=== PATIENT | male | born 1975 | race African-American/Black ===

== ENCOUNTER 2016-11-20 07:00 | Day surgery (SDC) | payer OTHER ==
[~2016-11-20] VITALS: Ht 182.9 cm; Wt 103.0 kg
[~2016-11-20 07:00] MED LIST: NAPR-855 PO
[2016-11-20] MEDS ORDERED: LR 1,000 ML IV ONE (07:45)
[2016-11-20] MEDS ORDERED: MIDAZOLAM INJ 2 MG/2 ML VIAL (J2250) As Ordered ONE ×2 (07:55→09:10)
[2016-11-20] MEDS ORDERED: PROPOFOL 200 MG/20 ML VIAL As Ordered ONE ×3 (07:56→11:05)
[2016-11-20] MEDS ORDERED: fentaNYL 100 MCG/2 ML INJECTION (J3010) As Ordered ONE (07:56)
[2016-11-20] MEDS ORDERED: LIDOCAINE 2% INJ 100 MG/5 ML SDV (FOR ANES.) As Ordered ONE (07:56)
[2016-11-20] MEDS ORDERED: KETAMINE HCL 200 MG/20 ML VIAL As Ordered ONE (08:32)
[2016-11-20] MEDS ORDERED: LIDOCAINE 2% MDV 20 ML VIAL As Ordered ONE (08:32)
[2016-11-20] MEDS ORDERED: BUPIVACAINE HCL 0.5% 30 ML VIAL As Ordered ONE (08:32)
[2016-11-20] MEDS ORDERED: dexameTHASONE 4 MG/ML 1ML VIAL (J1100) As Ordered ONE (08:32)
[2016-11-20] MEDS ORDERED: NEOSPORIN GU IRRIG 20 ML VIAL As Ordered ONE (08:33)
[2016-11-20] MEDS ORDERED: BACITRACIN PWD 50,000 UNITS VIAL As Ordered ONE (08:33)
[2016-11-20] MEDS ORDERED: ONDANSETRON 4MG/2ML VIAL (J2405) As Ordered ONE (09:36)
[2016-11-20] MEDS ORDERED: KETOROLAC 60 MG/2 ML VIAL (J1885) As Ordered ONE (09:36)
[2016-11-20] MEDS ORDERED: GLYCOPYRROLATE INJ 0.2 MG/ML 2 ML VIAL As Ordered ONE (09:39)
[2016-11-20] MEDS ORDERED: ONDANSETRON 4MG/2ML VIAL (J2405) IV PRN (12:00)
[2016-11-20] MEDS ORDERED: fentaNYL 100 MCG/2 ML INJECTION (J3010) IV PRN (12:00)
[2016-11-20] MEDS ORDERED: LR 1,000 ML IV SCH (12:00)
[2016-11-20] MEDS: PERCOCET 5MG/325MG TAB PO PRN ×2 (12:04→13:27)
[2016-11-20] MEDS ORDERED: PERCOCET 5MG/325MG TAB As Ordered ONE (13:22)
[2016-11-20 13:30] VITALS: BP 145/89
--- NOTE | 2016-11-20 13:56 | REP ---
LEFT FOOT, FOUR VIEWS: HISTORY: Postoperative. The patient is status post osteotomy of the distal 1st and 5th metatarsals. Metal screws are present. The patient is status post osteotomy of the 2nd through 4th digits. Metal pins are present. There is no dislocation. IMPRESSION: The patient is status post osteotomy of the 1st and 5th metatarsals and 2nd through 4th digits. There is anatomic alignment. Signed by Teja Nair MD 11/20/2016 01:58 P
--- NOTE | 2016-11-21 13:34 | RO ---
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 PROCEDURE: CB BUNIONECTOMY WITH INTERNAL SCREW FIXATION LEFT FOOT: PROXIMAL INTERPHALANGEAL JOINT ARTHROPLASTY WITH EXTERNAL WIRE FIXATION 0.045 X 1 SECOND TOE RIGHT FOOT: PROXIMAL INTERPHALANGEAL JOINT ARTHROPLASTY WITH EXTERNAL WIRE FIXATION 0.045 X 1 THIRD TOE LEFT FOOT: PROXIMAL INTERPHALANGEAL JOINT ARTHROPLASTY WITH EXTERNAL WIRE FIXATION 0.045 X 1 FOURTH TOE LEFT FOOT: PROXIMAL INTERPHALANGEAL JOINT ARTHROPLASTY FIFTH TOE LEFT FOOT: TAILOR'S BUNIONECTOMY WITH DISTAL V OSTEOTOMY WITH INTERNAL SCREW FIXATION 2.5 mm x 60 mm x 1 LEFT FOOT: SURGEON: Dr. Chandu Thorpe DPM FLAT LOCK OPERATOR: None. ANESTHESIA: Local MAC. IRRIGATION: Dilute bacitracin, neomycin and polymyxin B solution. HEMOSTASIS: Ankle pneumatic tourniquet at 200 mmHg for 112 minutes. ESTIMATED BLOOD LOSS: 10 mL. HARDWARE UTILIZED: Smith Dart-Fire 3.0 x 24 mm and a 2.5 x 16 mm and an external wire 0.045 times three. DESCRIPTION OF OPERATION: On 11/20/2016, this 41-year-old black male was taken from his hospital room to the operating room and placed on the operating room table in the supine position. Following the induction of IV sedation and local and regional anesthesia, the left lower extremity was prepped and draped in the usual aseptic manner. Sterile draping was completed, ankle pneumatic tourniquet was rapidly inflated over a well padded site over the ankle and attention was directed to the patient's left foot where the following procedure was performed: CB BUNIONECTOMY WITH INTERNAL SCREW FIXATION LEFT FOOT: Attention was directed to the patient's left foot where there was noted to be a moderate hallux valgus deformity. At this time, a 6 cm dorsal medial incision was placed over the first metatarsal phalangeal joint medial to the extensor tendon. The incision was deepened through subcutaneous tissues and all coursing venous tributaries were identified, underscored clamped, cut, ligated and electrocoagulated as necessary. A linear capsulotomy was then performed in the same plane as the original skin incision. The capsule and periosteal structures were then dissected free in one continuous layer dorsally, medially and laterally thus creating a capsular periosteal type envelope. Linear capsulotomy was then performed in the same plane as the original skin incision. The capsule and periosteal structures were dissected free in one continuous layer dorsally, medially and laterally thus creating a capsular periosteal type envelope. Utilizing a power saw, an osteotomy was performed through the medial eminence of the first metatarsal from distal to proximal through and through exiting medial to the sesamoidal groove. This was extirpated from the wound. Dissection was then carried lateral to the extensor tendon and dissection was carried down to the fibular sesamoid where the conjoined tendon was sharply dissected free from the fibular sesamoid. Attention was directed to the medial surface of the first metatarsal where a V-shaped osteotomy was performed with a long plantar and short dorsal wing in the distal metaphysis of the first metatarsal. The capital fragment was transposed approximately 40% of the width of the shaft of the first metatarsal and fixated with a 3.0 x 24 mm cannulated compression screw. The screw did not penetrate the inferior cartilage under direct visualization. The redundant cortical spike was then osteotomized from dorsal to plantar through and through and extirpated from the wound. The medial surface was rasped with a hand held rasp to a smooth contour. The wound was flushed with copious amounts of dilute bacitracin, neomycin and polymyxin B solution. Attention was then directed towards closure where the capsular structures were coapted and maintained utilizing #2-0 Monocryl in a simple interrupted type fashion. Subcutaneous tissues were coapted and maintained utilizing #4-0 Monocryl in a simple interrupted type fashion. Skin incision was coapted and maintained utilizing #5-0 Monocryl in a continuous subcuticular type fashion. Attention was then directed to the patient's second toe where the following procedure was performed: PROXIMAL INTERPHALANGEAL JOINT ARTHROPLASTY WITH EXTERNAL WIRE FIXATION 0.045 X 1 SECOND TOE RIGHT FOOT: Attention was directed to the patient's second toe where an incision was made from the metatarsal phalangeal joint just distal to the proximal interphalangeal joint. The incision was deepened through the subcutaneous tissues and all coursing and venous tributaries were identified, underscored, clamped, cut, ligated and electrocoagulated as necessary. Z-plasty tendon lengthening was then performed at the extensor tendon. Medial and lateral collateral ligaments were then sharply dissected from the head of the proximal phalanx. Utilizing a power saw, an osteotomy was performed through the anatomical neck of the proximal phalanx from dorsal to plantar through and through. This was extirpated from the wound. The cartilage off the base of the middle phalanx was similarly osteotomized from dorsal to proximal through and through. A capsulotomy was then performed at the second metatarsal phalangeal joint capsule and the plantar plate was released. The wound was flushed with copious amounts of dilute bacitracin, neomycin and polymyxin B solution. External wire was then driven through the middle and distal phalanxes and the retrograded into the proximal phalanx. The wire was bent and a protective cap was placed on the distal end of the wire. Attention was then directed to the patient's third toe where the following procedure was performed: PROXIMAL INTERPHALANGEAL JOINT ARTHROPLASTY WITH EXTERNAL WIRE FIXATION 0.045 X 1 THIRD TOE LEFT FOOT: Attention was directed to the patient's third toe of the left foot. The procedure performed on the second toe was now performed on the third toe without variation or deletion, the only exception being that of anatomical location. Attention was then directed to the patient's fourth toe where the following procedure was performed: PROXIMAL INTERPHALANGEAL JOINT ARTHROPLASTY WITH EXTERNAL WIRE FIXATION 0.045 X 1 FOURTH TOE LEFT FOOT: Attention was directed to the patient's fourth toe of the left foot. The procedure performed on the second toe was now performed on the fourth toe without variation or deletion, the only exception being that of anatomical location. Attention was then directed to the patient's fifth toe where the following procedure was performed: PROXIMAL INTERPHALANGEAL JOINT ARTHROPLASTY FIFTH TOE LEFT FOOT: Attention was directed to the patient's fifth toe of the left foot. The procedure performed on the second toe was now performed on the fifth toe with the following variations: The cartilage was not removed from the middle phalanx of the fifth toe and no wire was used to stabilize the fifth toe. Attention was then directed to the lateral surface of the foot where there was noted to be a Tailor's bunion deformity. At this time, the following the procedure was performed: TAILOR'S BUNIONECTOMY WITH DISTAL V OSTEOTOMY WITH INTERNAL SCREW FIXATION 2.5 mm x 60 mm x 1 LEFT FOOT: Attention was directed to the patient's left foot where there was noted to be a Tailor's bunion deformity. At this time, a lateral incision was placed over the fifth metatarsal phalangeal joint. The incision was deepened through subcutaneous tissues and all coursing venous tributaries were identified, underscored, clamped, cut, ligated and electrocoagulated as necessary. A linear capsulotomy was performed in the same plane as the original skin incision. Capsule and periosteal structures were then dissected free dorsally and plantarly. The hypertrophied lateral eminence was osteotomized from distal to proximal, A V shaped osteotomy was then performed in the distal metaphysis of the fifth metatarsal with a long plantar and short dorsal wing. The capital fragment was transposed 40% of the width of the shaft of the fifth metatarsal and fixated with a screw 2.5 x 16 mm. The osteotomy was noted to be stable in all three cardinal planes. The redundant cortical spike was osteotomized from dorsal the plantar through and through and the lateral surface was rasped with smooth contour with a hand held rasp. The wound was again flushed with copious amounts of dilute bacitracin, neomycin and polymyxin B solution. Attention was then directed towards closure where the capsular structures were coapted and maintained using #2-0 Monocryl in simple interrupted type fashion. Subcutaneous tissues were coapted and maintained using #5-0 Monocryl in simple interrupted type fashion. Skin incision were coapted and maintained utilizing #5-0 Monocryl in a continuous subcuticular type fashion. This was additionally reinforced with Steri-Strips. Attention was then directed towards bandaging where a sterile compressive bandage was applied consisting of Adaptic, 4x4s, 4x4 splints, Saul, and 4 inch yanni wrap. The tourniquet was deflated during the procedure at the close of the digits. A pneumatic cam boot was dispensed for the patient to help immobilize the patient' s foot. The patient having apparently tolerated the surgical procedure well was taken from the operating room (OR) to his hospital room with vital signs stable and the patient afebrile for further monitoring by the anesthesia department. All surgical specimens removed during the operative procedure were sent to pathology for gross and microscopic examination. Postoperative instructions will be given upon discharge. KOKI
== END 2016-11-20 13:38 | disposition home or self-care (01) ==
LOC: M SDC 07:00
PROVIDERS: ATTEND Podiatrist
DX: M20.12 Hallux valgus (acquired), left foot (principal); M20.42 Other hammer toe(s) (acquired), left foot; M21.622 Bunionette of left foot
CPT/HCPCS: 28110; 28285; 28296; 36415; 73630; 85660; 88300; 97116; C1776; J0690; J1100; J1885; J2250; J2405; J3010

== ENCOUNTER 2018-02-06 08:12 | Day surgery (SDC) | payer OTHER ==
[~2018-02-06] VITALS: Ht 188 cm; Wt 95.9 kg
[~2018-02-06 08:12] MED LIST changes: +CHLO1TAB26 PO; +EUCE1CRE2 EX; +IBUP200C25 PO
[2018-02-06] MEDS ORDERED: LIDOCAINE 2% MDV 20 ML VIAL As Ordered ONE (08:20)
[2018-02-06] MEDS ORDERED: dexameTHASONE 4 MG/ML 1ML VIAL (J1100) As Ordered ONE ×2 (08:20→09:07)
[2018-02-06] MEDS ORDERED: BACITRACIN PWD 50,000 UNITS VIAL As Ordered ONE (08:20)
[2018-02-06] MEDS ORDERED: BUPIVACAINE HCL 0.5% 30 ML VIAL As Ordered ONE (08:20)
[2018-02-06] MEDS ORDERED: ROPIvacaine 0.5% 30 ML INJECTION (J2795 PER 1MG) As Ordered ONE (08:21)
[2018-02-06] MEDS ORDERED: NEOSPORIN GU IRRIG 20 ML VIAL As Ordered ONE (08:21)
[2018-02-06 08:50] LABS: BASO # 0.1 10^3/uL (0.0-0.2); BASO % 1.1 % (0.0-1.0); EOS # 0.2 10^3/uL (0.0-0.50); EOS % 3.4 % (0.0-3.0); HEMATOCRIT 46.2 % (42.0-52.0); HEMOGLOBIN 15.8 g/dl (13.5-17.5); LYMPH # 1.4 10^3/uL (1.5-4.5); LYMPH % 30.2 % (24.0-44.0); MEAN CORPUSCULAR HEMOGLOBIN 31.8 pg (27.0-33.0); MEAN CORPUSCULAR HGB CONC 34.2 g/dl (32.0-36.5); MONO # 0.5 10^3/uL (0.0-0.8); MONO % 10.8 % (0.0-5.0); NEUTROPHILS # 2.6 10^3/uL (1.8-7.7); NEUTROPHILS % 54.1 % (36.0-66.0); PLATELET COUNT, AUTOMATED 259 10^3/uL (150-450); RED BLOOD COUNT 4.97 10^6/uL (4.30-6.10); WHITE BLOOD COUNT 4.7 10^3/uL (4.0-10.0)
[2018-02-06] MEDS ORDERED: ONDANSETRON 4MG/2ML VIAL (J2405) As Ordered ONE (09:07)
[2018-02-06] MEDS ORDERED: LIDOCAINE 2% INJ 100 MG/5 ML SDV (FOR ANES.) As Ordered ONE (09:07)
[2018-02-06] MEDS ORDERED: PROPOFOL 200 MG/20 ML VIAL As Ordered ONE ×5 (09:08→11:41)
[2018-02-06] MEDS ORDERED: MIDAZOLAM INJ 2 MG/2 ML VIAL (J2250) As Ordered ONE (09:08)
[2018-02-06 09:09] LABS: BLOOD UREA NITROGEN 10 MG/DL (7-18); CARBON DIOXIDE LEVEL 26 MEQ/L (21-32); CHLORIDE LEVEL 105 MEQ/L (98-107); GLOMERULAR FILTRATION RATE > 60.0 (>60); GLUCOSE, FASTING 83 MG/DL (70-100); SODIUM LEVEL 138 MEQ/L (136-145)
[2018-02-06] MEDS ORDERED: fentaNYL 100 MCG/2 ML INJECTION (J3010) As Ordered ONE (09:09)
[2018-02-06] MEDS ORDERED: LR 1,000 ML IV SCH ×2 (09:15→12:15)
[2018-02-06] MEDS ORDERED: KETOROLAC 60 MG/2 ML VIAL (J1885) As Ordered ONE (10:49)
[2018-02-06] MEDS ORDERED: KETAMINE HCL 200 MG/20 ML VIAL As Ordered ONE (12:08)
[2018-02-06] MEDS ORDERED: KETOROLAC 30 MG/ML VIAL (J1885) IV PRN (12:15)
[2018-02-06] MEDS ORDERED: fentaNYL 100 MCG/2 ML INJECTION (J3010) IV PRN (12:15)
[2018-02-06] MEDS ORDERED: ONDANSETRON 4MG/2ML VIAL (J2405) IV PRN (12:15)
[2018-02-06] MEDS ORDERED: METOCLOPRAMIDE INJ 10MG/2ML VIAL (J2765) IV PRN (12:15)
[2018-02-06] MEDS ORDERED: PERCOCET 5MG/325MG TAB PO PRN (12:15)
--- NOTE | 2018-02-06 12:31 | REP ---
Clinical: Postoperative evaluation. Technique: Portable AP, lateral, bilateral oblique views of the right foot. Findings: The patient is status post partial resection and realignment involving the second through fifth phalanges as well as evidence for bunionectomy involving the first metatarsal head. Overlying postsurgical changes noted. Impression: Postoperative changes involving the right foot. Electronically Signed by Chandu Cota MD 02/06/2018 12:23 P
[2018-02-06 12:35] VITALS: BP 136/87
--- NOTE | 2018-02-09 15:05 | RO ---
DATE OF PROCEDURE: 02/06/2018 PREPROCEDURE DIAGNOSIS: Hallux valgus metatarsus primus varus deformity right foot, hammertoe deformity 2nd toe right foot, hammertoe deformity 3rd toe right foot, hammertoe deformity 4th toe right foot, hammertoe deformity 5th toe right foot. POSTPROCEDURE DIAGNOSIS: Hallux valgus metatarsus primus varus deformity right foot, hammertoe deformity 2nd toe right foot, hammertoe deformity 3rd toe right foot, hammertoe deformity 4th toe right foot, hammertoe deformity 5th toe right foot. PROCEDURE: 1. Cb bunionectomy internal screw fixation 3.0 x 22 mm x 1. 2. Proximal interphalangeal joint arthroplasty with external wire fixation 0.045 x 1 right foot. 3. Proximal interphalangeal joint arthroplasty with external wire fixation 0.045 x 1 3rd toe right foot. 4. Proximal interphalangeal joint arthroplasty 4th toe with external wire fixation 0.045 x 1 right foot. 5. Proximal interphalangeal joint arthroplasty 5th toe right foot. 6. Capsulotomy 2nd metatarsophalangeal joint right foot. 7. Capsulotomy 3rd metatarsophalangeal joint right foot. SURGEON: Dr. Chandu Thorpe DPM WIRE ROLLER: None. ANESTHESIA: Local monitored anesthesia care (MAC). HARDWARE UTILIZED: Arthrex 3.0 x 22 mm headless compression screw and 0.045 wire x 3. HEMOSTASIS: Ankle pneumatic tourniquet at 200 mmHg times approximately 87 minutes. DESCRIPTION OF PROCEDURE: On 02/06/2018, this 42-year-old black male was taken from his hospital room to the operating room and placed on the operating table in the supine position. Following the induction of intravenous (IV) sedation and local and regional anesthesia, the right lower extremity was prepped and draped in the usual aseptic manner. Attention was directed to the patient's right foot. There was noted to be hallux valgus deformity. At this time, the following procedure was performed: CB BUNIONECTOMY, INTERNAL SCREW FIXATION 3.0 mm x 22 mm TIMES ONE RIGHT FOOT: Attention was directed to the patient's right foot. There was noted to be a hallux valgus deformity. At this time, a 6 cm incision was placed over the metatarsophalangeal joint of the right foot. The incision was deepened through subcutaneous tissues and all coursing venous tributaries were identified, underscored, clamped, cut, ligated and electrocoagulated as necessary. A linear capsulotomy was performed in the same plane as the original skin incision. The capsular and periosteal structures were then dissected free in one continuous layer - dorsally, medially and laterally, thus creating a capsular periosteal type envelope. Attention was directed to the medial surface of the 1st metatarsal where the hypertrophied medial eminence was osteotomized from distal to proximal exiting medial to the sesamoidal groove. Attention was then directed into the 1st intermetatarsal space where dissection was carried down to the level of the conjoined tendon, which was sharply dissected free from the fibular sesamoid. Attention was directed to the medial surface of the 1st metatarsal where a V-shaped osteotomy was performed with a long plantar and short dorsal wing. Upon creation of this osteotomy, the capital fragment was transposed approximately 40% of the width of the shaft of the 1st metatarsal and fixated with a 3.0 x 22 mm headless compression screw. The osteotomy was noticed to be stable in all three cardinal planes. The redundant cortical spike was osteotomized from dorsal to plantar, through and through and extirpated from the wound in toto. Medial surface was rasped to a smooth contour. The wound was flushed with copious amounts of dilute bacitracin, neomycin and polymyxin B solution. Capsular structures were coapted and maintained utilizing #2-0 Monocryl in a simple interrupted type fashion. Subcutaneous tissues were coapted and maintained utilizing #4-0 Monocryl in a simple interrupted type fashion. Skin incision was coapted and maintained utilizing #4-0 Prolene in a simple interrupted and horizontal mattress type fashion. Attention was then directed to the patient's 2nd toe. The following procedure was performed: PROXIMAL INTERPHALANGEAL JOINT ARTHROPLASTY WITH EXTERNAL WIRE FIXATION 0.045 TIMES ONE 2nd TOE RIGHT FOOT: Attention was directed to the patient's right foot. There was noted to be a significantly contracted hammertoe deformity. At this time, two semi-elliptical incisions were placed over the dorsal aspect of the 2nd toe encompassing a corn. This was then extirpated from the wound. Dissection was carried down to the extensor tendon. All coursing venous tributaries were electrocoagulated as necessary. The extensor expansion and sands was then released and a Z-plasty tendon lengthening was performed of that tendon and this was freed to the level of the metatarsophalangeal joint. Medial and lateral collateral ligaments were sharply dissected free from the head of the proximal phalanx, and utilizing a sagittal saw, an osteotomy was performed at the level of the anatomical neck of the proximal phalanx from dorsal to plantar, through and through and extirpated from the wound. The articular cartilage on the base of the middle phalanx was similarly osteotomized from dorsal to plantar, through and through. The wound was flushed with copious amounts of dilute bacitracin, neomycin and polymyxin B solution. Utilizing an external wire, a 0.045 wire was driven through the middle and distal phalanxes and retrograded into the proximal phalanx utilizing C-arm control. The wire was bent, cut, and a [employer] ball was placed at the end of the external wire. Utilizing a braided nylon #4-0 and looped suture, a four-stranded core repair in a Frost fashion was placed across the extensor tendon. There was noted to be a contracture of the 2nd metatarsophalangeal joint. Therefore, the following procedure was performed: EXTENSOR CAPSULOTOMY 2nd METATARSOPHALANGEAL JOINT RIGHT FOOT: Attention was directed to the patient's metatarsophalangeal joint where an incision was made over the metatarsophalangeal joint. Extensor tendons were retracted in a lateral direction, and a dorsal capsulotomy was performed. This was closed with #4-0 Prolene in a simple interrupted type fashion. Attention was then directed to the patient's 3rd toe of the right foot. The following procedure was performed: PROXIMAL INTERPHALANGEAL JOINT ARTHROPLASTY WITH EXTERNAL WIRE FIXATION 0.045 TIMES ONE 3rd TOE RIGHT FOOT: Attention was directed to the patient's 3rd toe of the right foot where the procedure performed on the 2nd toe was now performed on the 3rd toe without variation or deletion, the only exception being that of anatomical location. Attention was then directed to the patient's 3rd metatarsophalangeal joint where there was noted to be an extensor contracture. At this time, the following procedure was performed. CAPSULOTOMY 3rd METATARSOPHALANGEAL JOINT RIGHT FOOT: Attention was directed to the patient's 3rd metatarsophalangeal joint where the procedure performed on the 2nd metatarsophalangeal joint was now performed on the 3rd metatarsophalangeal joint without variation or deletion, the only exception being that of anatomical location. Attention was then directed to the patient's 4th toe of the right foot where the following procedure was performed: PROXIMAL INTERPHALANGEAL JOINT ARTHROPLASTY WITH EXTERNAL WIRE FIXATION 0.045 TIMES ONE 4th TOE RIGHT FOOT: Attention was directed to the patient's 4th toe of the right foot where the procedure performed on the 2nd toe was now performed on the 4th toe without variation or deletion, the only exception being that of anatomical location. Attention was then directed to the patient's 5th toe of the right foot where the following procedure was performed: PROXIMAL INTERPHALANGEAL JOINT ARTHROPLASTY 5th TOE RIGHT FOOT: Attention was directed to the patient's 5th toe of the right foot where there was noted to be a hammertoe deformity. At this time, the procedure performed on the 2nd toe was now performed on the 5th toe with the following variation: No wire was used to stabilize the 5th toe and the cartilage was not denuded from the base of the middle phalanx. There was no other variations or deletions. Following the completion of the surgical procedure, approximately 4 mg of dexamethasone sodium phosphate was instilled proximal to the surgical site. Attention was directed towards bandaging where a sterile compressive bandage was applied consisting of Adaptic, 4 x 4's, 4 x 4 splints, Saul, Kerlix and Coban. Ankle pneumatic tourniquet was rapidly deflated and instantaneous capillary filling time was noted in digits 1-5 of the patient's right foot. The patient having apparently tolerated the surgical procedure well was taken from the operating room to the recovery room for further monitoring by the anesthesia department. All surgical specimens removed during the operative procedure were sent to Pathology for gross and microscopic examination.
== END 2018-02-06 14:28 | disposition home or self-care (01) ==
LOC: M SDC 08:12
PROVIDERS: ATTEND Podiatrist
DX: M20.11 Hallux valgus (acquired), right foot (principal); M20.41 Other hammer toe(s) (acquired), right foot; Z79.899 Other long term (current) drug therapy; F19.11 Other psychoactive substance abuse, in remission
CPT/HCPCS: 28270; 28285; 28296; 36415; 73630; 80048; 85025; 88300; C1713; J0690; J1100; J1885; J2250; J2405; J3010